=== PATIENT | female | born 1935 | race Caucasian/White ===

== ENCOUNTER 2017-03-16 13:24 | Day surgery (SDC) | payer MEDICARE, OTHER ==
[2017-03-16] MEDS ORDERED: Lactated Ringers 1,000 ML IV SCH (14:00)
[2017-03-16] MEDS ORDERED: Sodium Chloride 0.9% 10 ML Syringe FLUSH PRN (14:00)
[2017-03-16] MEDS ORDERED: fentaNYL 100 MCG/2 ML SDV ONE ×2 (14:53→15:00)
[2017-03-16] MEDS ORDERED: Midazolam 1 MG/ML 2 ML SDV ONE ×2 (14:53→15:00)
[2017-03-16] MEDS ORDERED: Propofol 200 MG/20 ML SDV ONE ×3 (14:53→15:46)
--- NOTE | 2017-03-16 14:56 | PCM.PN ---
- General Info Date of Service: 03/16/17 - Review of Systems Systems Review Comment:: 81-year-old female presents for colonoscopy. She has a history of recent episodes of hematochezia. This is painless and usually just involves blood on the tissue paper. It is been many years since her last colonoscopy. She is medically stable to proceed today with no significant recent change in her health status. I have again reviewed the proposed colonoscopy with the patient. Risks and possible complications have been reviewed with the patient and she agrees to proceed. - Patient Data Vitals - most recent: Last Vital Signs Temp 98.1 F 03/16/17 14:18 Pulse 111 H 03/16/17 14:18 Resp 20 03/16/17 14:18 BP 154/98 H 03/16/17 14:18 Pulse Ox 99 03/16/17 14:18 Weight - most recent: 77.111 kg Lab Results last 24 hrs: Laboratory Results - last 24 hr 03/16/17 Range/Units 14:24 POC Glucose 103 (65-110) mg/dl Med Orders - Current: Current Medications Lactated Ringer's (Ringers, Lactated) 1,000 mls @ 125 mls/hr IV ASDIRECTED NEREYDA Last Admin: 03/16/17 14:34 Dose: 125 mls/hr Sodium Chloride (Saline Flush) 10 ml FLUSH ASDIRECTED PRN PRN Reason: Keep Vein Open - Problem List Review Problem List Initiated/Reviewed/Updated: Yes - My Orders Last 24 Hours: My Active Orders 03/16/17 14:00 Patient Status [ADT] Routine Blood Glucose Check, Bedside [RC] ONETIME Peripheral IV Care [RC] . DIRECTED Verify Patient Consent Obtain [RC] ASDIRECTED Lactated Ringers [Ringers, Lactated] 1,000 ml IV ASDIRECTED Sodium Chloride 0.9% [Saline Flush] 10 ml FLUSH ASDIRECTED PRN Peripheral IV Insertion Adult [OM.PC] Routine - Assessment Assessment:: Hematochezia - Plan Plan:: Colonoscopy
--- NOTE | 2017-03-16 15:50 | PCM.OPNOTE ---
- General Post-Op/Procedure Note Date of Surgery/Procedure: 03/16/17 Operative Procedure(s): Colonoscopy with biopsy. Rigid sigmoidoscopy Findings: Approximately 6 cm rectal mass located 9 cm from the verge. This mass is hard and suspicious for malignancy. The patient has a moderate degree of sigmoid diverticulosis which does not appear complicated. The colon otherwise appears normal. The patient also has moderate-sized internal hemorrhoids. Pre Op Diagnosis: Rectal bleeding Post-Op Diagnosis: Rectal tumor suspect malignancy. Sigmoid diverticulosis. Internal hemorrhoids Anesthesia Technique: [facility] [place] Primary Surgeon: Guero Granados Pathology: Biopsies of rectal mass Output, Urine Amount: 0 EBL in mLs: 3 Complications: None Condition: Good
[2017-03-16 19:02] VITALS: BP 140/96
--- NOTE | 2017-03-17 16:38 | OR ---
Date of Procedure: 03/16/2017 REFERRING PROVIDER: Fabiola Costa MD PREOPERATIVE DIAGNOSIS: Rectal bleeding. POSTOPERATIVE DIAGNOSES: 1. Rectal mass, suspect malignant. 2. Sigmoid diverticulosis. 3. Internal hemorrhoids. OPERATION PERFORMED: Colonoscopy with biopsy. INDICATIONS FOR SURGERY: This 81-year-old female, comes for a colonoscopy. She has been having some episodes of rectal bleeding. It has been many years since her last colonoscopy. FINDINGS: In the patient's rectum, located 9 cm from the anal verge. The patient has a large firm mass. This is estimated at approximately 6 cm in size and appears to encompass approximately 25% of the circumference of the colon. This mass is firm and suspicious for malignancy. The patient also has a moderate degree of sigmoid diverticulosis and some moderate-sized internal hemorrhoids. DESCRIPTION OF PROCEDURE: The patient was taken to the operating room. She was given intravenous sedation. With her in the left lateral decubitus position, digital rectal exam was performed showing no rectal masses. The Olympus colonoscope was inserted into the rectum and retroflexed examination of the rectal canal was performed. In the rectum, the above-described mass was identified. Multiple biopsies of this mass were taken. The scope was then advanced into the remainder of the colon and eventually, the scope was able to be advanced all the way to the cecum. This did require hand pressure and also placing the patient in the supine position, but eventually, the cecum was able to be safely reached. Cecal identity was confirmed by viewing the ileocecal valve and the appendiceal orifice and also seeing the light transilluminate the abdominal wall in the right lower quadrant. After examining the cecum, the scope was slowly withdrawn sequentially re-examining the colonic segments until the entire colon and rectum had been fully examined. The colonoscope was then removed. The rigid sigmoidoscope was inserted into the rectum and this was advanced up to the level of the rectal mass. This was performed to accurately identify the location of the mass and it was confirmed at 9 cm from the anal verge. The rigid sigmoidoscope was then removed. The patient was then taken from the operating room in satisfactory condition. ESTIMATED BLOOD LOSS: 3 mL. COMPLICATIONS: None. PROGNOSIS: Good. SAMUEL Granados MD /[id number]
== END 2017-03-16 17:25 | disposition home or self-care (01) ==
LOC: MERGE 13:24 → LL.SDS 13:24
PROVIDERS: ATTEND Surgery
DX: C20 Malignant neoplasm of rectum (principal); Z88.1 Allergy status to other antibiotic agents; Z88.8 Allergy status to other drugs, medicaments and biological substances; Z79.82 Long term (current) use of aspirin; Z79.84 Long term (current) use of oral hypoglycemic drugs; Z79.899 Other long term (current) drug therapy; Z98.890 Other specified postprocedural states
CPT/HCPCS: 00810; 45380; 82962; 88305; 88341; 88342; J2250; J2704; J3010; J7120